=== PATIENT | female | born 1955 | race Caucasian/White ===

== ENCOUNTER 2017-06-01 19:05 | Emergency (ER) | payer OTHER ==
[~2017-06-01] VITALS: Ht 149.9 cm; Wt 93.3 kg
[~2017-06-01 19:05] MED LIST: NADO1TAB17 PO; ROBA750T3 PO
[2017-06-01 19:11] VITALS: BP 146/72; PULSE 90; RESP 16; TEMP 98.3; O2SAT 96
[2017-06-01 19:32] LABS: BLOOD, URINE LARGE (NEG); GLUCOSE,URINE 250 mg/dL (NEG); KETONE, URINE NEG (NEG); NITRITE,URINE POS (NEG)
[2017-06-01] MEDS ORDERED: CIPR-9 PO (19:33)
--- NOTE | 2017-06-01 19:33 | PD ---
HPI Chief Complaint: Complaint Time Seen by Provider: 19:23 Travel History International Travel<30 days: No Contact w/Intl Traveler<30days: No Traveled to known affect area: No History of Present Illness HPI 62-year-old female complains of dysuria or frequency and hematuria. Patient states that the symptoms started yesterday. Patient denies any headache. Patient denies any chest pain or shortness of breath. Patient denies abdominal pain. Patient denies any back pain. Patient denies any fever chills. PFSH Past Medical History Arthritis: Yes Blood Disorders: No Anxiety: Yes Depression: No Heart Rhythm Problems: Yes Cancer: No Cardiovascular Problems: Yes High Cholesterol: No Chest Pain: No Congestive Heart Failure: No Cerebrovascular Accident: No Diminished Hearing: No Endocrine: No GERD: Yes Genitourinary: No Headaches: Yes Hypertension: No Immune Disorder: No Musculoskeletal: Yes Neurologic: Yes Psychiatric: Yes Reproductive: No Respiratory: No Migraines: No Myocardial Infarction: No Seizures: No ?: Not Menopausal: Yes Tubal Ligation: Yes Past Surgical History Abdominal Surgery: No Cardiac Surgery: No Ear Surgery: No Endocrine Surgery: No Eye Surgery: No Genitourinary Surgery: No Gynecologic Surgery: Yes Oral Surgery: No Thoracic Surgery: No Other Surgery: Yes (LEFT/RIGHT CARPAL TUNNEL) Social History Alcohol Use: No Tobacco Use: No Substance Use: No Allergies-Medications (Allergen,Severity, Reaction): Coded Allergies: Sulfa (Sulfonamide Antibiotics) (Verified Adverse Reaction, Intermediate, NAUSEA & VOMITTING, 06/01/17) codeine (Verified Adverse Reaction, Intermediate, NAUSEA & VOMITTING, ) Reported Meds & Prescriptions Reported Meds & Active Scripts Active Review of Systems General / Constitutional: No: Fever Eyes: No: Visual changes HENT: No: Headaches Cardiovascular: No: Chest Pain or Discomfort Respiratory: No: Shortness of Breath Gastrointestinal: No: Abdominal Pain Genitourinary: Positive: Frequency, Dysuria, Hematuria Musculoskeletal: No: Pain Skin: No Rash Neurologic: No: Weakness Psychiatric: No: Depression Endocrine: No: Polydipsia Hematologic/Lymphatic: No: Easy Bruising Physical Exam Narrative GENERAL: Well-nourished, well-developed patient. SKIN: Focused skin assessment warm/dry. HEAD: Normocephalic. EYES: No scleral icterus. No injection or drainage. NECK: Supple, trachea midline. No JVD or lymphadenopathy. CARDIOVASCULAR: Regular rate and rhythm without murmurs, gallops, or rubs. RESPIRATORY: Breath sounds equal bilaterally. No accessory muscle use. GASTROINTESTINAL: Abdomen soft, non-tender, nondistended. MUSCULOSKELETAL: No cyanosis, or edema. BACK: Nontender without obvious deformity. No CVA tenderness. Neurologic exam normal. Data Data Last Documented VS Vital Signs Date Time Temp Pulse Resp B/P (MAP) Pulse Ox O2 Delivery O2 Flow Rate FiO2 06/01/17 19:11 98.3 90 16 146/72 (96) 96 Orders Orders Urinalysis - C+S If Indicated (06/01/17 19:20) MDM Medical Decision Making Medical Screen Exam Complete: Yes Emergency Medical Condition: Yes Differential Diagnosis Differential diagnosis including urethritis, UTI, pyelonephritis, nephrolithiasis. Cipro 500 mg by mouth given. Narrative Course 62-year-old female complains of dysuria or frequency and hematuria. Diagnosis Primary Impression: UTI (urinary tract infection) Qualified Codes: N30.01 - Acute cystitis with hematuria Patient Instructions: General Instructions Additional Instructions: Cipro as directed. Advised cranberry juice. Follow-up with personal physician. Return if persistent problem or worse. Med/Other Pt SpecificInfo: Prescription(s) given Scripts Ciprofloxacin (Cipro) 500 Mg Tab 500 MG PO BID for Infection, #14 TAB 0 Refills Prov: Parag Juarez MD 06/01/17 Disposition: 01 DISCHARGE HOME Condition: Stable Parag Juarez MD Jun 01, 2017 19:33
[2017-06-01 19:38] LABS: URINE COLOR AMBER (YELLW/STRAW)
[2017-06-01 19:39] LABS: BACTERIA, URINE MOD /hpf; COMMENT (UR) CULTURE INDICATED; CULTURE IF INDICATED CULTURE INDICATED; RBC, URINE INNUM /hpf (0-3); SQUAMOUS EPITHELIAL CELL URINE > 8 /hpf (0-5); WBC, URINE 100-200 /hpf (0-5)
[2017-06-01] MEDS ORDERED: PROP10TA6 PO (19:39)
[2017-06-01] MEDS ORDERED: CIPROFLOXACIN 500 MG TAB PO ONE (19:45)
== END 2017-06-01 19:54 | disposition home or self-care (01) ==
LOC: PHED 19:05
DX: N30.01 Acute cystitis with hematuria (principal); B96.1 Klebsiella pneumoniae [K. pneumoniae] as the cause of diseases classified elsewhere
CPT/HCPCS: 81001; 87077; 87086; 87186; 99283

== ENCOUNTER 2017-10-06 22:06 | Emergency (ER) | payer OTHER ==
[~2017-10-06] VITALS: Ht 152.4 cm; Wt 91.8 kg
[~2017-10-06 22:06] MED LIST changes: +CIPR-9 PO; -NADO1TAB17 PO; +PROP10TA6 PO; -ROBA750T3 PO
[2017-10-06 22:08] VITALS: BP 163/76; PULSE 97; RESP 18; TEMP 97.1; O2SAT 95
--- NOTE | 2017-10-06 22:15 | PD ---
HPI Chief Complaint: Complaint Time Seen by Provider: 22:11 Travel History International Travel<30 days: No Contact w/Intl Traveler<30days: No Traveled to known affect area: No History of Present Illness HPI PATIENT C/O URGENCY, FREQUENCY, DYSURIA OVER THE LAST 4 HRS OR SO...PATIENT STATES HER SYMPTOMS ARE TYPICAL OF HER UTI THAT SHE HAS HAD IN THE PAST. NO ASSOC FEVER/ABD PAIN/CP/N/V/D/AGUILAR/ CHART AND RN NOTES REVIEWED ALL: SULFA/CODEINE CAUSE N/V PMHX:GERD, DM, HTN PSHX:BTL PFSH Past Medical History Arthritis: Yes Blood Disorders: No Anxiety: Yes Depression: No Heart Rhythm Problems: Yes Cancer: No Cardiovascular Problems: Yes High Cholesterol: No Chest Pain: No Congestive Heart Failure: No Cerebrovascular Accident: No Diabetes: Yes (PO) Diminished Hearing: No Endocrine: No Gastrointestinal Disorders: No GERD: Yes Genitourinary: No Headaches: Yes Hypertension: No Immune Disorder: No Musculoskeletal: Yes Neurologic: Yes Psychiatric: Yes Reproductive: No Respiratory: No Migraines: No Myocardial Infarction: No Seizures: No ?: Not Menopausal: Yes Tubal Ligation: Yes Past Surgical History Abdominal Surgery: No Cardiac Surgery: No Ear Surgery: No Endocrine Surgery: No Eye Surgery: No Genitourinary Surgery: No Gynecologic Surgery: Yes Neurologic Surgery: No Oral Surgery: No Thoracic Surgery: No Other Surgery: Yes (LEFT/RIGHT CARPAL TUNNEL) Social History Alcohol Use: No Tobacco Use: No Substance Use: No Allergies-Medications (Allergen,Severity, Reaction): Coded Allergies: Sulfa (Sulfonamide Antibiotics) (Verified Adverse Reaction, Intermediate, NAUSEA & VOMITTING, 10/06/17) codeine (Verified Adverse Reaction, Intermediate, NAUSEA & VOMITTING, 10/06) Reported Meds & Prescriptions Reported Meds & Active Scripts Active Cipro (Ciprofloxacin HCl) 500 Mg Tab 500 Mg PO BID Reported Propranolol (Propranolol HCl) 10 Mg Tab 10 Mg PO Q12HR Review of Systems General / Constitutional: No: Fever Eyes: No: Visual changes HENT: No: Headaches Cardiovascular: No: Chest Pain or Discomfort Respiratory: No: Shortness of Breath Gastrointestinal: No: Abdominal Pain Genitourinary: Positive: Urgency, Frequency, Dysuria Musculoskeletal: No: Pain Skin: No Rash Neurologic: No: Weakness Psychiatric: No: Depression Endocrine: No: Polydipsia Hematologic/Lymphatic: No: Easy Bruising Physical Exam Narrative GENERAL: SKIN: Warm and dry. HEAD: Atraumatic. Normocephalic. EYES: Pupils equal and round. No scleral icterus. No injection or drainage. ENT: No nasal bleeding or discharge. Mucous membranes pink and moist. NECK: Trachea midline. No JVD. CARDIOVASCULAR: Regular rate and rhythm. RESPIRATORY: No accessory muscle use. Clear to auscultation. Breath sounds equal bilaterally. GASTROINTESTINAL: Abdomen soft, non-tender, nondistended. MUSCULOSKELETAL: Extremities without clubbing, cyanosis, or edema. No obvious deformities. NEUROLOGICAL: Awake and alert. No obvious cranial nerve deficits. Motor grossly within normal limits. Five out of 5 muscle strength in the arms and legs. Normal speech. PSYCHIATRIC: Appropriate mood and affect; insight and judgment normal. Data Data Last Documented VS Vital Signs Date Time Temp Pulse Resp B/P (MAP) Pulse Ox O2 Delivery O2 Flow Rate FiO2 10/06/17 22:08 97.1 97 18 163/76 (105) 95 Orders Orders Urinalysis - C+S If Indicated (10/06/17 22:15) Labs Laboratory Tests Test 10/06/17 22:15 [facility] Medical Decision Making Medical Screen Exam Complete: Yes Emergency Medical Condition: Yes Medical Record Reviewed: Yes Differential Diagnosis BACTERIAL UTI V FUNGAL INFEXN V POLYURIA Narrative Course PATIENT DID NOT WANT TO WAIT, I GAVE WAIT AND SEE ANTIBIOTICS WELL ANTIFUNGAL MEDS TO BE TAKEN AT A LATER TIME... Diagnosis Primary Impression: UTI Patient Instructions: General Instructions, Urinary Tract Infection in Women ( ED) Scripts Fluconazole (Diflucan) 150 Mg Tab 150 MG PO ONCE for Infection, #1 TAB 0 Refills Prov: Yonathan Stephens MD 10/06/17 Nitrofurantoin Monohydrate Macrocrystals (Macrobid) 100 Mg Capsule 100 MG PO BID for Infection for 7 Days, #14 CAP 0 Refills Prov: Yonathan Stephens MD 10/06/17 Disposition: 01 DISCHARGE HOME Condition: Stable Yonathan Stephens MD Oct 06, 2017 22:15
[2017-10-06] MEDS ORDERED: DIFL150T PO (22:19)
[2017-10-06] MEDS ORDERED: MACR100C2 PO (22:19)
[2017-10-06] MEDS ORDERED: DICL75TA PO (22:22)
[2017-10-06] MEDS ORDERED: LIPI10TA PO (22:22)
[2017-10-06] MEDS ORDERED: TRAD5TAB PO (22:22)
[2017-10-06 22:26] LABS: BILIRUBIN, URINE NEG (NEG); BLOOD, URINE LARGE (NEG); GLUCOSE,URINE 250 mg/dL (NEG); KETONE, URINE 15 mg/dL (NEG); NITRITE,URINE NEG (NEG); URINE LEUKOCYTE ESTERASE SMALL (NEG)
[2017-10-06] MEDS ORDERED: NITROFURANTOIN MONOHYD MACROCR 100 MG CAP PO ONE (22:30)
[2017-10-06 22:35] LABS: URINE COLOR YELLOW (YELLW/STRAW)
[2017-10-06 22:36] LABS: MUCUS URINE OCC /lpf (OCC)
[2017-10-06 22:37] LABS: BACTERIA, URINE OCC /hpf; HYALINE CAST, URINE 0-2 /lpf (RARE); SQUAMOUS EPITHELIAL CELL URINE 0-5 /hpf (0-5); WHITE BLOOD CELL CLUMPS FEW
[2017-10-06 22:38] LABS: AMORPHOUS SEDIMENT, URINE MOD
== END 2017-10-06 22:38 | disposition home or self-care (01) ==
LOC: PHEFT 22:06
DX: N39.0 Urinary tract infection, site not specified (principal); K21.9 Gastro-esophageal reflux disease without esophagitis; I10 Essential (primary) hypertension; E11.9 Type 2 diabetes mellitus without complications
CPT/HCPCS: 81001; 87086; 99284

== ENCOUNTER 2018-09-02 05:58 | Inpatient (IN) ==
[2018-09-02] MEDS ORDERED: Chlorhexidine Gluconate 2% 1 Pack (2 Cloths) TOPICAL ONE (06:27)
[2018-09-02] MEDS ORDERED: Metoprolol Tartrate 25 MG Tablet PO ONE (06:27)
[2018-09-02] MEDS ORDERED: Dexamethasone Inj 20 MG/5 ML Vial IV.PUSH ONE (06:28)
[2018-09-02] MEDS ORDERED: Chlorhexidine 4% Topical 120 APPLIC/120 ML Bottle TOPICAL SCH (06:30)
[2018-09-02] MEDS ORDERED: Bisacodyl 10 MG Supp RECTAL PRN (06:51)
[2018-09-02] MEDS ORDERED: Post-op Orders (for Pharmacy) OTHER STA (06:51)
[2018-09-02] MEDS ORDERED: Zolpidem Tartrate 5 MG Tablet PO PRN (06:51)
[2018-09-02] MEDS ORDERED: HYDROmorphone PF Inj 1 MG/ML Ampul IV.PUSH PRN (06:51)
[2018-09-02] MEDS ORDERED: Vancomycin Inj 1,000 MG in Sodium Chlor 0.9% Inj 250 ML IV.SIG SCH (07:00)
[2018-09-02] MEDS ORDERED: ceFAZolin 2 GM Premix Inj 2 GM/50 ML PIGGYBACK IV.SIG SCH (07:00)
[2018-09-02] MEDS ORDERED: Sodium Chlor 0.9% Inj 500 ML IV.SIG SCH (07:00)
[2018-09-02] MEDS ORDERED: SODIUM CHLOR 0.9% IV.SIG SCH (08:30)
[2018-09-02] MEDS ORDERED: TRANEXAMIC ACID IV.SIG SCH (08:30)
[2018-09-02] MEDS ORDERED: Sodium Chlor 0.9% Inj 73.07 ML, Ropivacaine 0.5% PF Inj 24.63 ML, Ketorolac Inj 30 MG, ... P-ARTICULR SCH ×5 (08:30)
[2018-09-02] MEDS ORDERED: Sodium Chlor 0.9% Inj 100 ML, Tranexamic Acid Inj 3,000 MG P-ARTICULR SCH ×2 (08:30)
--- NOTE | 2018-09-02 10:16 | P.OP ---
Procedure: PREOPERATIVE DIAGNOSIS: Right knee osteoarthritis. POSTOPERATIVE DIAGNOSIS: Right knee osteoarthritis. PROCEDURE PERFORMED: Right total knee arthroplasty. SURGEON: Dr. Saul Mcleod M.D. GUTTER HANGER: COLTON Dougherty. ANESTHESIA: General with adductor canal femoral nerve block ESTIMATED BLOOD LOSS: 100 mL. COMPLICATIONS: None. IMPLANTS USED: Depuy Attune posterior stabilized femur 4 rotating platform tibia baseplate [3 ] polyethylene insert [7] patella [38] Justification: The patient presents to the undersigned at [facility] with chief complaints of severe right knee pain. The pain is severe progressive and interferes with activities of daily living. The patient has failed greater than 3 months of nonoperative conservative treatment to include nonsteroidal anti-inflammatory medications, analgesic medications, physical therapy, cortisone injection, home exercise program, activity modification, ambulatory assistive aids, and weight loss. X-rays of the right knee reveal severe end-stage osteoarthritis with joint space narrowing, subchondral sclerosis, subchondral cysts, osteophyte formation, deformity with subluxation. The patient was counseled as to the risks, benefits, alternatives to a total knee arthroplasty. The risks were discussed which include but are not limited to, anesthesia, bleeding, infection, damage to nerves and blood vessels, continued pain, stiffness, failure of implants, blood clots, pulmonary embolism , and even . The patient's pain is severe and favors benefits over risk. The patient does wish to proceed with surgery as outlined above. Procedure in detail: Written consent has been obtained from the patient. The patient was identified and taken to the operating room. The patient was placed supine on the operating room table. General anesthesia was administered to the patient as well as an adductor canal femoral nerve block. The patient was administered preoperative IV antibiotic. A well-padded tourniquet was placed in the right thigh. The right lower extremity was prepped and draped using isopropyl alcohol , Hibiclens solution, and ChloraPrep solution. After a timeout was performed an Esmarch bandage was used to exsanguinate the right lower extremity. The tourniquet was inflated to 250 mmHg. A longitudinal incision was made over the anterior aspect of the right knee. A medial parapatellar arthrotomy was performed. The patella was everted. A patellar resection guide was used to assist with patellar resection. The patella drill guide was then placed to allow for 3 drill holes within the patella. The patella trial fit well. Attention was then turned to the femur where a intramedullary guide michelle was placed. The distal femoral guide was set to remove 10 mm of distal femur 5 degrees off the anatomic valgus axis alignment. An oscillating saw was used to perform the distal femoral cut. Attention was then turned to the tibia where extramedullary tibia guide was set to remove 5 mm off the lowest portion of the medial tibial plateau. The tibial guide was pinned in place and the tibial cut was performed. A 5 mm spacer block showed full extension. Attention was turned back to the femur with the AP sizing block used to assist with appropriate measurement and placement of the 3 degree external rotation AP cutting guide. The anterior, posterior and chamfer cuts were then performed. The PCL box guide was pinned in place and the PCL was boxed out with an oscillating saw. The medial and lateral meniscus remnants were removed as well as bone and soft tissue debris from the posterior portion of the knee. A tibia baseplate was then pinned in place and the tibia was drilled and punched. Trial components were evaluated and final components were then cemented in place. With the final components implanted the knee could achieve full extension to 0 degrees and flexion to 140, with no evidence of tibial liftoff. The testing of varus valgus balance appeared appropriate and symmetric with good stability. The patella was noted to track centrally. The tourniquet was deflated Bovie cautery was then used for hemostasis. The knee was then thoroughly irrigated with sterile saline pulse lavage antibiotic impregnated solution. The arthrotomy incision was closed with #1 Vicryl suture. The subcutaneous layer closed with 2-0 Vicryl suture. The skin incision was then closed with Dermabond. Sterile dressings were applied. The patient tolerated the procedure well with no intraoperative complications noted. Saul Fleming physician daycare assistant certified was present during the entire procedure to include patient positioning and the procedure itself. The medical necessity of a physician daycare assistant was indicated in this case due to the complexity of the procedure itself. He assisted with appropriate manipulation of the leg and also retraction of the muscle, tendon, bone and neurovascular structures. He assisted with preparation of bone and also implantation of the prosthetic replacement. There was a electronic equipment maint tech within the room that was focused on handling of instruments but was not available to assist with the actual surgery itself. Surgeon: Saul Lopez MD
[2018-09-02] MEDS ORDERED: fentaNYL Citrate Inj 100 MCG/2 ML Ampul ONE ×2 (10:46)
[2018-09-02] MEDS ORDERED: *HYDROmorphone PF Inj 1 MG/ML Ampul PERIprocedural Use ONLY ONE (11:02)
--- NOTE | 2018-09-02 11:04 | XR ---
EXAM DATE: 09/02/2018 10:59 AM EST AGE/SEX: 63 years / Female INDICATIONS: Post op right knee. CLINICAL DATA: This is the patient's initial encounter. Patient reports that signs and symptoms have been present for 1 day and indicates a pain score of Nonresponsive. MEDICAL/SURGICAL HISTORY: None. None. COMPARISON: No prior exams available for comparison. FINDINGS: AP and lateral views of the knee following arthroplasty reveals a prosthesis in anatomic alignment. F racture is not appreciated. Air is present within the joint capsule. CONCLUSION: Status post total knee arthroplasty. Rolan Hassan MD FACR Electronically signed by: Rolan Hassan MD 09/02/2018 11:03 AM EST
[2018-09-02] MEDS: Propranolol 10 MG Tablet PO SCH ×2 (11:35→22:28)
[2018-09-02] MEDS: Glimepiride 2 MG Tablet PO SCH ×2 (11:35→22:29)
[2018-09-02] MEDS: ceFAZolin 2 GM Premix Inj 2 GM/50 ML PIGGYBACK IV.SIG SCH ×2 (16:06→22:22)
[2018-09-02] MEDS: Non-Formulary Drug (Linagliptin [Tradjenta] 5 MG) PO SCH (17:11)
[2018-09-02] MEDS: Senna/Docusate Sodium 8.6/50 MG Tablet PO SCH ×2 (17:12→22:29)
[2018-09-02] MEDS: Multivitamin/Minerals Therapeutic Tablet PO SCH ×2 (17:12→22:28)
--- NOTE | 2018-09-02 23:32 | XR ---
EXAM DATE: 09/02/2018 11:24 PM EST AGE/SEX: 63 years / Female INDICATIONS: Pain in right knee, post fall. CLINICAL DATA: This is the patient's initial encounter. Patient reports that signs and symptoms have been present for 1 day and indicates a pain score of 5/10. MEDICAL/SURGICAL HISTORY: None. . Post OP. COMPARISON: [facility] – [place], [place] LIMITED RIGHT /2V, 09/02/2018. . FINDINGS: 2 views of the right knee. Total knee prosthesis is in place. Hardware intact. Alignment within enma l limits. Gas in the soft tissues indicating recent surgery. CONCLUSION: Total knee prosthesis in place. Postoperative findings again seen. Electronically signed by: Nikita Vega MD 09/02/2018 11:30 PM EST
[2018-09-03] MEDS: ceFAZolin 2 GM Premix Inj 2 GM/50 ML PIGGYBACK IV.SIG SCH (03:18)
[2018-09-03 06:22] LABS: Hematocrit 31.3 % (35.0-46.0); Hemoglobin 10.9 gm/dL (11.6-15.3)
[2018-09-03] MEDS: Multivitamin/Minerals Therapeutic Tablet PO SCH ×2 (08:08→20:01)
[2018-09-03] MEDS: Senna/Docusate Sodium 8.6/50 MG Tablet PO SCH ×2 (08:08→20:01)
[2018-09-03] MEDS: Propranolol 10 MG Tablet PO SCH ×2 (08:08→20:00)
[2018-09-03] MEDS: Glimepiride 2 MG Tablet PO SCH ×2 (08:08→20:01)
--- NOTE | 2018-09-03 08:09 | P.PNOP ---
Subjective Interval history: pain tolerable. Physical Exam Vital signs: Vital Signs 09/02/18 10:29 09/02/18 10:30 09/02/18 10:45 Temperature 97.5 F L Pulse Rate 94 H 95 H 90 Respiratory Rate 11 L 11 L 10 L Blood Pressure 161/97 H 159/86 H 164/81 H Pulse Oximetry 100 100 100 09/02/18 11:00 09/02/18 11:15 09/02/18 11:30 Temperature Pulse Rate 87 91 H 92 H Respiratory Rate 15 13 14 Blood Pressure 168/77 H 139/65 137/61 Pulse Oximetry 100 98 09/02/18 11:33 09/02/18 11:45 09/02/18 11:53 Temperature Pulse Rate 91 H Respiratory Rate 14 13 14 Blood Pressure 138/65 Pulse Oximetry 97 09/02/18 12:00 09/02/18 13:00 09/02/18 14:00 Temperature Pulse Rate 93 H 85 83 Respiratory Rate 15 16 18 Blood Pressure 127/62 128/57 L 122/57 L Pulse Oximetry 97 97 98 09/02/18 15:00 09/02/18 16:00 09/02/18 17:15 Temperature 97.1 F L Pulse Rate 87 94 H 92 H Respiratory Rate 16 16 16 Blood Pressure 110/58 L 115/58 L 118/58 L Pulse Oximetry 95 95 96 09/02/18 19:33 09/03/18 01:05 09/03/18 02:41 Temperature 98.4 F 97.9 F Pulse Rate 102 H 97 H Respiratory Rate 19 18 17 Blood Pressure 123/59 L 126/60 Pulse Oximetry 95 98 09/03/18 04:04 09/03/18 06:51 Temperature 98.5 F Pulse Rate 94 H Respiratory Rate 18 17 Blood Pressure 126/59 L Pulse Oximetry 97 Intake & Output 09/02/18 09/03/18 09/03/18 18:59 06:59 18:59 Intake Total 1050 / 1050 2099 / 2100 480 / 480 Output Total 500 / 500 Balance 550 / 550 2099 / 2100 480 / 480 Weight 100.5 kg 86.6 kg Intake: IV 350 / 350 2099 / 2099 LR 1000 mL Inj 1,000 ML @ 80 1000 / 1000 mls/hr IV.CONT .[id number] [facility] Rx# :[id number] LR 1000 mL Inj 1,000 ML @ 30 1000 / 1000 mls/hr IV.SIG .Q24H JR Rx#: [id number] Vancomycin Inj 1,000 MG In NS 250 / 250 Inj 250 ML @ 250 mls/hr IV.SIG TACK PULLER JR Rx#:[id number] Ancef 2 GM Premix Inj 2 gm In 100 / 100 100 / 100 50 ml @ 100 mls/hr IV.SIG Q6H JR Rx#:[id number] Oral 480 / 480 Anesthesia Amount 700 / 700 Output: Urine 400 / 400 Estimated Blood Loss 100 / 100 Other: # Voids 1 1 Date of Last Bowel Movement 09/01/18 Weight On Admission 88.3 kg Narrative: in bed, nad dressing c/d/i neg homans nvi Results - Labs CBC & Chem 7: 09/03/18 05:46 Laboratory Results - last 24 hr 09/02/18 09/02/18 09/03/18 07:20 17:10 05:46 Hgb 10.9 L Hct 31.3 L POC Glucose 359 H Antibody Screen Negative - Imaging Impressions Knee X-Ray 09/02/18 06:49 CONCLUSION: Status post total knee arthroplasty. Rolan Hassan MD FACR Knee X-Ray 09/02/18 22:41 CONCLUSION: Total knee prosthesis in place. Postoperative findings again seen. Assessment and Plan - Ortho Post Op Day # 1 - Assessment and Plan s/p R TKA wbat ok to maintain dressing unless saturated asa 81 d/c planning home with PT - Wed f/up dr. prince 2 weeks
--- NOTE | 2018-09-03 08:10 | P.DCO ---
- Physical Therapy Physical Therapy: Gait training, Safety evaluation Knee: Total knee, Protocol: Right, Full weight bearing Right Lower Extremity Weight Bearing: Weight bearing as tolerated - Nursing RN days per week: 1 Nursing: Dressing changes Dressing changes: Do not change dressing - Certification Need for Home Health services: I have seen patient Jenny You on 09/03/18. My clinical findings support the need for the requested home health care services because: Need for Home Health Services: Limited ability to care for self, High risk of falls Homebound Certification: I certify that my clinical findings support that this patient is homebound because: Homebound Certification: Post-op weakness, Unsteady gait/balance
[2018-09-03] MEDS: Non-Formulary Drug (Linagliptin [Tradjenta] 5 MG) PO SCH (12:09)
[2018-09-04 06:11] LABS: Hematocrit 29.4 % (35.0-46.0); Hemoglobin 10.4 gm/dL (11.6-15.3)
--- NOTE | 2018-09-04 07:43 | P.PNOP ---
Subjective Interval history: having pain with PT. Physical Exam Vital signs: Vital Signs 09/03/18 08:00 09/03/18 12:00 09/03/18 16:00 Temperature 99.2 F 98.7 F 98.4 F Pulse Rate 93 H 94 H 93 H Respiratory Rate 18 18 18 Blood Pressure 135/63 113/55 L 134/60 Pulse Oximetry 97 99 98 09/03/18 19:47 09/03/18 20:20 09/04/18 00:18 Temperature 98.1 F 98.3 F Pulse Rate 106 H 109 H Respiratory Rate 18 17 18 Blood Pressure 135/62 154/70 H Pulse Oximetry 94 L 93 L 09/04/18 01:30 09/04/18 02:07 09/04/18 06:57 Temperature Pulse Rate Respiratory Rate 18 17 18 Blood Pressure Pulse Oximetry Intake & Output 09/03/18 09/04/18 09/04/18 18:59 06:59 18:59 Intake Total 1200 / 1200 840 / 840 Balance 1200 / 1200 840 / 840 Weight 86.6 kg 87.1 kg Intake: Oral 1200 / 1200 840 / 840 Other: # Voids 4 3 Date of Last Bowel Movement 09/02/18 09/02/18 # Bowel Movements 0 Narrative: in bed, nad dressing c/d/i, ice on knee neg homans nvi Results - Labs CBC & Chem 7: 09/04/18 05:51 Laboratory Results - last 24 hr 09/04/18 05:51 Hgb 10.4 L Hct 29.4 L Assessment and Plan - Ortho Post Op Day # 2 - Assessment and Plan s/p R TKA wbat ok to maintain dressing unless saturated asa 81 d/c planning to snf - cleared when authorized by insurance [id number] signed and in chart f/up dr. prince 2 weeks
[2018-09-04] MEDS: Multivitamin/Minerals Therapeutic Tablet PO SCH ×2 (08:34→20:46)
[2018-09-04] MEDS: Glimepiride 2 MG Tablet PO SCH ×2 (08:34→20:46)
[2018-09-04] MEDS: Propranolol 10 MG Tablet PO SCH ×2 (08:34→20:46)
[2018-09-04] MEDS: Non-Formulary Drug (Linagliptin [Tradjenta] 5 MG) PO SCH (08:36)
[2018-09-04] MEDS: Senna/Docusate Sodium 8.6/50 MG Tablet PO SCH ×2 (12:17→20:46)
--- NOTE | 2018-09-05 07:53 | P.PNOP ---
Subjective Interval history: doing ok. Physical Exam Vital signs: Vital Signs 09/04/18 08:00 09/04/18 12:00 09/04/18 16:00 Temperature 98.1 F 97.6 F 98.0 F Pulse Rate 100 H 96 H 100 H Respiratory Rate 17 16 18 Blood Pressure 126/69 156/73 H 147/70 H Pulse Oximetry 96 96 97 09/04/18 19:29 09/04/18 21:16 09/05/18 00:42 Temperature 98.6 F 98.2 F Pulse Rate 99 H 96 H Respiratory Rate 17 18 18 Blood Pressure 130/60 148/67 H Pulse Oximetry 95 93 L 09/05/18 02:06 09/05/18 03:37 09/05/18 05:50 Temperature 98.6 F Pulse Rate 96 H Respiratory Rate 18 17 18 Blood Pressure 140/63 Pulse Oximetry 94 L Intake & Output 09/04/18 09/05/18 09/05/18 18:59 06:59 18:59 Intake Total 960 / 960 720 / 720 Balance 960 / 960 720 / 720 Weight 84.4 kg Intake: Oral 960 / 960 720 / 720 Other: # Voids 4 2 Date of Last Bowel Movement 09/01/18 09/01/18 Narrative: in bed, nad dressing c/d/i neg karen nvi Results - Labs CBC & Chem 7: 09/04/18 05:51 Assessment and Plan - Ortho Post Op Day # 3 - Assessment and Plan s/p R TKA wbat ok to maintain dressing unless saturated asa 81 d/c planning to snf - cleared today [id number] signed and in chart f/up dr. prince 2 weeks
[2018-09-05] MEDS: Glimepiride 2 MG Tablet PO SCH ×2 (08:31→20:51)
[2018-09-05] MEDS: Senna/Docusate Sodium 8.6/50 MG Tablet PO SCH ×2 (08:31→20:50)
[2018-09-05] MEDS: Multivitamin/Minerals Therapeutic Tablet PO SCH ×2 (08:31→20:50)
[2018-09-05] MEDS: Propranolol 10 MG Tablet PO SCH ×2 (08:31→20:50)
[2018-09-05] MEDS: Non-Formulary Drug (Linagliptin [Tradjenta] 5 MG) PO SCH (08:33)
--- NOTE | 2018-09-05 14:50 | XR ---
EXAM DATE: 09/05/2018 2:45 PM EST AGE/SEX: 63 years / Female INDICATIONS: Constipation post surgery. CLINICAL DATA: This is the patient's initial encounter. Patient reports that signs and symptoms have been present for 4 - 6 days and indicates a pain score of 0/10. MEDICAL/SURGICAL HISTORY: None. . total knee replacement. COMPARISON: None. FINDINGS: Air is a moderate amount of stool throughout the colon greatest in the distal: Which could indicate f ecal impaction. Colon is not dilated. No abnormal masses, calcifications, or organomegaly is seen. Sc oliosis and degenerative changes are noted in the lumbar spine. The patient is status post left hip a rthroplasty.. CONCLUSION: Moderate amount of stool throughout the colon greatest in the distal colon which could indicate fecal impaction.. Electronically signed by: Armond Rm MD Board Certified Radiologist 09/05/2018 2:49 PM EST
--- NOTE | 2018-09-06 07:40 | P.PNOP ---
Subjective Interval history: doing ok. had BM. Physical Exam Vital signs: Vital Signs 09/05/18 08:00 09/05/18 12:00 09/05/18 16:00 Temperature 98.1 F 98.4 F 98.5 F Pulse Rate 97 H 95 H 96 H Respiratory Rate 18 17 18 Blood Pressure 136/64 137/66 113/63 Pulse Oximetry 97 96 98 09/05/18 20:20 09/05/18 21:20 09/06/18 00:00 Temperature 98.5 F 97.8 F Pulse Rate 99 H 89 Respiratory Rate 18 Blood Pressure 142/64 H 119/69 Pulse Oximetry 98 97 09/06/18 03:40 Temperature 97.4 F L Pulse Rate 98 H Respiratory Rate 18 Blood Pressure 135/77 Pulse Oximetry 93 L Intake & Output 09/05/18 09/06/18 09/06/18 18:59 06:59 18:59 Intake Total 1084 / 1084 600 / 600 Balance 1084 / 1084 600 / 600 Weight 85 kg Intake: Oral 1084 / 1084 600 / 600 Other: # Voids 10 2 Date of Last Bowel Movement 09/01/18 09/05/18 # Bowel Movements 2 Narrative: in bed, nad dressing c/d/i neg homans nvi Results - Labs CBC & Chem 7: 09/04/18 05:51 - Imaging Impressions Abdomen X-Ray 09/05/18 13:24 CONCLUSION: Moderate amount of stool throughout the colon greatest in the distal colon which could indicate fecal impaction.. Assessment and Plan - Ortho Post Op Day # 4 - Assessment and Plan s/p R TKA wbat ok to maintain dressing unless saturated asa 79 has had BM d/c planning to snf - cleared today [id number] signed and in chart f/up dr. prince 2 weeks
[2018-09-06] MEDS: Glimepiride 2 MG Tablet PO SCH ×2 (07:55→08:07)
[2018-09-06] MEDS: Propranolol 10 MG Tablet PO SCH ×2 (07:56→08:07)
[2018-09-06] MEDS: Senna/Docusate Sodium 8.6/50 MG Tablet PO SCH ×2 (07:58→08:08)
[2018-09-06] MEDS: Multivitamin/Minerals Therapeutic Tablet PO SCH ×2 (07:58→08:08)
[2018-09-06] MEDS: Non-Formulary Drug (Linagliptin [Tradjenta] 5 MG) PO SCH (08:07)
--- NOTE | 2018-09-09 07:29 | MD ---
cc: Saul Lopez MD DATE OF DISCHARGE: 09/06/2018 ADMITTING DIAGNOSIS: Severe degenerative osteoarthritis, right knee. DISCHARGE DIAGNOSIS: Severe degenerative osteoarthritis, right knee. HISTORY OF PRESENT ILLNESS: Ms. You is a 63-year-old female who presented to the orthopedic clinic for evaluation by Dr. Tyler Lopez regarding severe and progressive right knee pain. The patient states the pain has been present for many years and is currently limiting her ability to ambulate safely. She notes she has a severe aching sensation with weightbearing activities. She has no alleviating factors, although in the past she has tried medications, bracing, physical therapy, home exercise program ,and injections without relief of symptoms. She does have x-ray evidence of severe degenerative changes of the right knee joint. While in the office, the patient was counseled on her diagnosis and treatment options. Risks, benefits, and indications were discussed. The patient did elect to proceed with surgical intervention to include right total knee arthroplasty. DATE OF SURGERY: 09/02/2018, right total knee arthroplasty. HOSPITAL COURSE: Postop after surgery, the patient was admitted to [facility] where she received appropriate medical management, pain control, DVT prophylaxis, as well as physical therapy. DISCHARGE: Once being disturbed in the hospital. The patient has been cleared to go to a assisted facility. She is in stable condition. She may weight bear as tolerated. She has been instructed on wound care management. The patient has been provided prescriptions for pain control and DVT prophylaxis medication. She has also been provided a followup appointment approximately 2 weeks from her date of surgery. The patient has asked appropriate questions which have been answered. The patient is cleared for discharge. Dictated by REMI Dougherty Saul Lopez MD JWM/denilson , 07:45 AM , 07:48 AM
== END 2018-09-06 11:39 ==
LOC: HSDC 05:58 → HSDI 07:12 → EDSTATUS 08:30 → N06 16:15
PROVIDERS: ADMIT Orthopaedic Surgery Sports Medicine; ATTEND Orthopaedic Surgery Sports Medicine